=== PATIENT | female | born 1955 | race Caucasian/White ===

== ENCOUNTER 2017-06-17 03:20 | Emergency (ER) | payer BC, OTHER ==
[~2017-06-17] VITALS: Ht 170.2 cm; Wt 68.2 kg
[2017-06-17] MEDS ORDERED: IOHEXOL 350 MG/ML 10 ML VIAL (for RAD DIAG) IVCONTRAST ONE (03:21)
[2017-06-17 03:28] VITALS: BP 94/63; PULSE 66; RESP 14; TEMP 98.6; O2SAT 99
[2017-06-17] MEDS ORDERED: SODIUM CHLOR 0.9% 1000 ML INJ 1,000 ML IV ONE ×2 (03:34→05:00)
--- NOTE | 2017-06-17 03:37 | PD ---
HPI Chief Complaint: Syncope/Near-Syncope Time Seen by Provider: 03:33 Travel History International Travel<30 days: No Contact w/Intl Traveler<30days: No Traveled to known affect area: No History of Present Illness HPI 62 year-old female presents to the emergency department by EMS transport from home after a syncopal episode and subsequent right forehead laceration. According to the patient she went to bed as usual last evening around 9 PM after taking her lorazepam at 8 PM when she does every night. Patient states just prior to arrival to the emergency department she was awakened by severe cramping of the abdomen. Patient states that as she was up to go to the bathroom and while having a diarrheal stool the cramping increased and she started to feel lightheaded and as she started to stand up she passed out and fell. Patient states when she came to she realized that she had hit her face and sustained a laceration to her forehead. Patient was able to get up on her own and call a friend who is a nurse and was encouraged to come to the hospital. Patient states since the event she has been ambulatory at home. Patient complains of headache. Patient denies any visual disturbance. Patient denies any facial pain except with laceration. Patient denies neck pain. Patient has had no chest pain, no palpitations, no sweats, no nausea or vomiting , or shortness of breath. Patient denies any rib pain. Patient denies any pleuritic pain. No report of recent long distance travel protracted bedrest or recent surgical procedure. Patient denies abdominal pain at this time. Patient denies any recent dietary indiscretion, well water ingestion, or foreign travel. No report of mucoid or bloody stool. No recent antibiotic use. Patient denies history of colitis, diverticulitis, or inflammatory bowel disease. Patient has had GI upset in the past. Patient underwent upper endoscopy for esophageal dilatation and outpatient hemorrhoidectomy. Patient denies any dysuria, frequency, or urgency; no extremity pain or injury. FOR[facility]LY [facility] Past Medical History Narrative Medical tetanus 2016 anxiety appendectomy; tobacco use no alcohol use; nursing notes reviewed Cancer: No Cardiovascular Problems: No Diminished Hearing: No Endocrine: No Genitourinary: No Immune Disorder: No Musculoskeletal: No Neurologic: No Psychiatric: No Reproductive: No Respiratory: No ?: Not Menopausal: Yes Past Surgical History Abdominal Surgery: No Appendectomy: Yes Cardiac Surgery: No Ear Surgery: No Endocrine Surgery: No Eye Surgery: No Genitourinary Surgery: No Gynecologic Surgery: No Oral Surgery: No Thoracic Surgery: No Other Surgery: Yes (Minor plastic surgery) Social History Alcohol Use: Yes (2 glasses of wine a day) Tobacco Use: Yes (1/2 pack a day) Substance Use: No Allergies-Medications (Allergen,Severity, Reaction): Coded Allergies: nitrofurantoin (Verified Allergy, Intermediate, Rash, 06/17/17) Sulfa (Sulfonamide Antibiotics) (Verified Allergy, Unknown, 06/17/17) Per patient Reported Meds & Prescriptions Reported Meds & Active Scripts Active Reported Restoril (Temazepam) 30 Mg Cap 30 Mg PO HS PRN Review of Systems Except as stated in HPI: all other systems reviewed are Neg General / Constitutional: No: Fever, Chills Eyes: No: Visual changes HENT: Positive: Headaches, Lightheadedness, No: Neck Stiffness, Neck Pain Cardiovascular: Positive: Syncope, No: Chest Pain or Discomfort, Palpitations, Diaphoresis, Dyspnea on exertion, Claudication Respiratory: No: Shortness of Breath, Pleuritic Pain Gastrointestinal: Positive: Diarrhea, Abdominal Pain, No: Nausea, Vomiting, Hematemesis, Hematochezia Genitourinary: No: Dysuria, Flank Pain Musculoskeletal: No: Myalgias, Arthralgias Skin: Positive Other, No Rash Neurologic: Positive: Weakness (forehead laceration), Dizziness, Syncope, No: Focal Abnormalities, Coordination Problem Psychiatric: No: Anxiety Endocrine: No: Heat Intolerance Hematologic/Lymphatic: No: Easy Bruising Physical Exam Narrative GENERAL: Well-developed well-nourished female in no acute distress no respiratory distress; GCS 15 SKIN: Warm and dry. HEAD: Atraumatic. Normocephalic. Except for right forehead just overlying the right eyebrow is a deep 2 cm linear laceration EYES: Pupils equal and round. No scleral icterus. No injection or drainage. No periorbital rim bony abnormality or crepitus or step-off. ENT: No nasal bleeding or discharge. Mucous membranes pink and moist. Airway is patent. No hemotympanum. NECK: Trachea midline. No JVD. No midline tenderness to direct palpation along the cervical spine no bony step-off nontender. CARDIOVASCULAR: Regular rate and rhythm. RESPIRATORY: No accessory muscle use. Clear to auscultation. Breath sounds equal bilaterally. GASTROINTESTINAL: Abdomen soft, non-tender, nondistended. Hepatic and splenic margins not palpable. MUSCULOSKELETAL: Extremities without clubbing, cyanosis, or edema. No obvious deformities. NEUROLOGICAL: Awake and alert. No obvious cranial nerve deficits. Motor grossly within normal limits. Five out of 5 muscle strength in the arms and legs. No pronator drift. No limb ataxia. Sensory exam intact. Normal speech. PSYCHIATRIC: Appropriate mood and affect; insight and judgment normal. Data Data Last Documented VS Vital Signs Date Time Temp Pulse Resp B/P (MAP) Pulse Ox O2 Delivery O2 Flow Rate FiO2 06/17/17 06:02 63 96/62 (73) 55 103/76 (85) 74 107/78 (88) 06/17/17 05:05 15 99 Room Air 06/17/17 03:28 98.6 Orders Orders Electrocardiogram (06/17/17 03:34) Complete Blood Count With Diff (06/17/17 03:34) Comprehensive Metabolic Panel (06/17/17 03:34) Magnesium (Mg) (06/17/17 03:34) Ckmb (Isoenzyme) Profile (06/17/17 03:34) Troponin I (06/17/17 03:34) Act Partial Throm Time (Ptt) (06/17/17 03:34) Prothrombin Time / Inr (Pt) (06/17/17 03:34) Urinalysis - C+S If Indicated (06/17/17 03:34) Chest, Single Ap (06/17/17 03:34) Ct Brain W/O Iv Contrast(Rout) (06/17/17 03:34) Ct Cerv Spine W/O Contrast (06/17/17 03:34) Blood Glucose (06/17/17 03:34) Ecg Monitoring (06/17/17 03:34) Iv Access Insert/Monitor (06/17/17 03:34) Oximetry (06/17/17 03:34) Sodium Chloride 0.9% Flush (Ns Flush) (06/17/17 03:45) Sodium Chlor 0.9% 1000 Ml Inj (Ns 1000 M (06/17/17 03:34) Ct Abd/Pel W Iv Contrast(Rout) (06/17/17 ) Lidocaine Pf 1% Inj (Xylocaine-Mpf 1% In (06/17/17 03:45) Lidocaine 2% Jelly (Xylocaine 2% Jelly) (06/17/17 04:00) Sodium Chlor 0.9% 1000 Ml Inj (Ns 1000 M (06/17/17 05:00) Iohexol 350 Inj (Omnipaque 350 Inj) (06/17/17 03:21) Orthostatic Vital Signs (06/17/17 05:44) Labs Laboratory Tests Test 06/17/17 03:50 06/17/17 06:00 White Blood Count 7.2 TH/MM3 Red Blood Count 4.20 MIL/MM3 Hemoglobin 12.8 GM/DL Hematocrit 37.7 % Mean Corpuscular Volume 89.8 FL Mean Corpuscular Hemoglobin 30.5 PG Mean Corpuscular Hemoglobin Concent 34.0 % Red Cell Distribution Width 12.7 % Platelet Count 252 TH/MM3 Mean Platelet Volume 8.0 FL Neutrophils (%) (Auto) 54.9 % Lymphocytes (%) (Auto) 32.3 % Monocytes (%) (Auto) 6.1 % Eosinophils (%) (Auto) 5.2 % Basophils (%) (Auto) 1.5 % Neutrophils # (Auto) 4.0 TH/MM3 Lymphocytes # (Auto) 2.3 TH/MM3 Monocytes # (Auto) 0.4 TH/MM3 Eosinophils # (Auto) 0.4 TH/MM3 Basophils # (Auto) 0.1 TH/MM3 CBC Comment DIFF FINAL Differential Comment Prothrombin Time 9.8 SEC Prothromb Time International Ratio 0.9 RATIO Activated Partial Thromboplast Time 18.2 SEC Blood Urea Nitrogen 25 MG/DL Creatinine 0.79 MG/DL Random Glucose 112 MG/DL Total Protein 6.8 GM/DL Albumin 3.4 GM/DL Calcium Level 8.3 MG/DL Magnesium Level 2.3 MG/DL Alkaline Phosphatase 69 U/L Aspartate Amino Transf (AST/SGOT) 21 U/L Alanine Aminotransferase (ALT/SGPT) 22 U/L Total Bilirubin 0.2 MG/DL Sodium Level 139 MEQ/L Potassium Level 4.1 MEQ/L Chloride Level 105 MEQ/L Carbon Dioxide Level 28.7 MEQ/L Anion Gap 5 MEQ/L Estimat Glomerular Filtration Rate 74 ML/MIN Total Creatine Kinase 72 U/L Troponin I LESS THAN 0.02 NG/ML Urine Color YELLOW Urine Turbidity CLEAR Urine pH 5.0 Urine Specific [place] GREATER THAN 1.035 Urine Protein NEG mg/dL Urine Glucose (UA) NEG mg/dL Urine Ketones TRACE mg/dL Urine Occult Blood NEG Urine Nitrite NEG Urine Bilirubin NEG Urine Leukocyte Esterase NEG Urine RBC 0-2 /hpf Urine WBC 0-2 /hpf Urine Squamous Epithelial Cells 6-8 /hpf Urine Bacteria NONE /hpf Microscopic Urinalysis Comment CULT NOT INDICATED MDM Medical Decision Making Medical Screen Exam Complete: Yes Emergency Medical Condition: Yes Medical Record Reviewed: Yes Interpretation(s) EKG normal sinus rhythm rate [address] elevation or injury pattern age- indeterminate septal infarct QS V1 V2 CT brain w/oL CONCLUSION: 1. No acute intracranial abnormalities. Laceration right frontal scalp. Van Moran MD on June 17, 2017 at 5:15 Board Certified Radiologist. This report was verified electronically. CT cervical spine: CONCLUSION: 1. No acute findings. Degenerative disc disease and facet arthropathy. No canal stenosis. Van Moran MD on June 17, 2017 at 5:18 Board Certified Radiologist. This report was verified electronically. CT abd/pel: CONCLUSION: 1. Negative for acute traumatic injury within the abdomen or pelvis. Small enhancing lesion posterior aspect right lobe liver, likely benign. Colonic diverticula without diverticulitis. Van Moran MD on June 17, 2017 at 5:21 Board Certified Radiologist. This report was verified electronically. CBC & BMP Diagram 06/17/17 03:50 Total Protein 6.8, Albumin 3.4, Calcium Level 8.3 L, Magnesium Level 2.3, Alkaline Phosphatase 69, Aspartate Amino Transf (AST/SGOT) 21, Alanine Aminotransferase (ALT/SGPT) 22, Total Bilirubin 0.2 Vital Signs Date Time Temp Pulse Resp B/P (MAP) Pulse Ox O2 Delivery O2 Flow Rate FiO2 06/17/17 05:05 65 15 96/62 (73) 99 Room Air 06/17/17 04:45 68 14 89/68 (75) 98 Room Air 06/17/17 03:38 97 06/17/17 03:28 98.6 66 14 94/63 (73) 99 Differential Diagnosis Syncope near-syncope vasovagal syncope gastroenteritis arrhythmia IA ICH CHI laceration skull fracture electrolyte disturbance UTI sepsis anemia Narrative Course Patient placed on cardiac cath lab radiology technologist IV access obtained specimens collected and sent for resulting EKG normal sinus rhythm rate 60 age-indeterminate QS septally no acute ST elevation or injury pattern change noted patient administered 1 L normal saline tetanus status is current as of June 2016 laceration repair performed imaging studies ordered @ 4:[address] Patient is return from CT resting comfortably voicing no complaint Patient up out of bed to bathroom to collect urine specimen asymptomatic no dizziness no lightheadedness no balance disturbance no nausea no vomiting no chest pain no shortness of breath Blood pressure has increased to 107/78. Urinalysis shows specific gravity greater than 1.035 suggesting patient volume depleted Discussed with patient observation admission due to syncopal episode with head injury and crampy abdominal pain of unclear etiology; patient unwilling to be admitted but does have access to a responsible adult to follow her over the next 24 hours while she is following head injury precautions and to return her immediately to the emergency department for any concerns or change in condition Procedures Procedure Narrative LACERATION LOCATION: Right forehead LENGTH: 3 cm NUMBER OF STITCHES/JOE: 15 REPAIR: The area of the laceration was prepped with Betadine and sterilely draped. The laceration was infiltrated with 1% lidocaine plain. The wound was copiously irrigated and explored without evidence of foreign body, tendon injury or neurovascular injury. The wound was closed using #3 6-0 Vicryl, #12 6 -0 nylon. This was a double layer repair. A sterile dressing was applied. The patient was advised to keep the dressing clean and dry. Patient tolerated the procedure well. Tetanus status current June 2016. Diagnosis Primary Impression: Syncope Qualified Codes: R55 - Syncope and collapse Additional Impressions: Closed head injury Qualified Codes: S09.90XA - Unspecified injury of head, initial encounter Forehead laceration Qualified Codes: S01.81XA - Laceration without foreign body of other part of head, initial encounter Hypotension Qualified Codes: I95.9 - Hypotension, unspecified Referrals: Primary Care Physician 1 day Patient Instructions: General Instructions Additional Instructions: Follow head injury precautions 24 hours No work times one day increase fluid hydration Take acetaminophen/Tylenol as often as every 4 hours as needed for fever 100.4 F or greater or for minor pain Keep wound site clean and dry apply topical antibiotic frequently; avoid sunburn to laceration area Wound check at 2 days suture removal at 5-7 days May apply ice intermittently to areas soft tissue swelling Return to the emergency department for fever pain vomiting or any concerns Med/Other Pt SpecificInfo: Prescription(s) given Scripts Ondansetron Odt (Zofran Odt) 4 Mg Tab 4 MG SL Q6HR Y for Nausea/Vomiting, #10 TAB 0 Refills Prov: Nidia Zuñiga MD 06/17/17 Disposition: 01 DISCHARGE HOME Condition: Serious Nidia Zuñiga MD Jun 17, 2017 03:37
[2017-06-17 03:38] VITALS: O2SAT 97
[2017-06-17] MEDS ORDERED: LIDOCAINE HCL 1% PF 30 ML VIAL INFIL ONE (03:45)
[2017-06-17] MEDS ORDERED: SODIUM CHLORIDE 0.9% FLUSH 10 ML FLUSH IVF PRN (03:45)
[2017-06-17] MEDS ORDERED: LIDOCAINE HCL 2% JELLY 5 ML SYRINGE TOPICAL ONE (04:00)
[2017-06-17 04:02] LABS: BASOPHIL # 0.1 TH/MM3 (0-0.2); BASOPHIL % 1.5 % (0.0-2.0); EOSINOPHIL # 0.4 TH/MM3 (0-0.4); EOSINOPHIL % 5.2 % (0.0-4.0); HEMATOCRIT 37.7 % (35.0-46.0); HEMO FLAGS DIFF FINAL; LYMPH % 32.3 % (9.0-44.0); LYMPHOCYTE # 2.3 TH/MM3 (1.0-4.8); MEAN CELL VOLUME 89.8 FL (80.0-100.0); MEAN CORPUSCULAR HEMOGLOBIN 30.5 PG (27.0-34.0); MONO % 6.1 % (0.0-8.0); NEUT % 54.9 % (16.0-70.0); PLATELET COUNT 252 TH/MM3 (150-450); RED CELL DISTRIBUTION WIDTH 12.7 % (11.6-17.2); WHITE BLOOD COUNT 7.2 TH/MM3 (4.0-11.0)
--- NOTE | 2017-06-17 04:05 | RADRPT ---
EXAM DATE/TIME: 06/17/2017 03:45 [facility] COMPARISON: No previous studies available for comparison. INDICATIONS : Fall. MEDICAL HISTORY : Smoker. SURGICAL HISTORY : Breast augmentation. ENCOUNTER: Initial ACUITY: 1 day PAIN SCORE: 0/10 LOCATION: Bilateral chest FINDINGS: A single view of the chest demonstrates the lungs to be symmetrically aerated without evidence of mas s, infiltrate or effusion. The cardiomediastinal contours are unremarkable. Osseous structures are intact. CONCLUSION: No acute disease. Van Moran MD on June 17, 2017 at 4:03 Board Certified Radiologist. This report was verified electronically.
[2017-06-17 04:11] LABS: CHLORIDE 105 MEQ/L (98-107); POTASSIUM 4.1 MEQ/L (3.5-5.1); SODIUM (NA) 139 MEQ/L (136-145)
[2017-06-17 04:15] LABS: ANION GAP 5 MEQ/L (5-15); BICARBONATE 28.7 MEQ/L (21.0-32.0); BLOOD UREA NITROGEN 25 MG/DL (7-18); MAGNESIUM 2.3 MG/DL (1.5-2.5)
[2017-06-17 04:18] LABS: ALT (GPT) 22 U/L (10-53); AST (GOT) 21 U/L (15-37); GLOMERULAR FILTRATION RATE 74 ML/MIN (>89)
[2017-06-17 04:20] LABS: TOTAL BILIRUBIN ADULT 0.2 MG/DL (0.2-1.0)
[2017-06-17 04:21] LABS: ALKALINE PHOSPHATASE 69 U/L (45-117); APTT (PATIENT) 18.2 SEC (24.3-30.1); INTERNATIONAL NORMALIZED RATIO 0.9 RATIO; PROTHROMBIN TIME - PATIENT 9.8 SEC (9.8-11.6)
[2017-06-17 04:25] LABS: CREATINE KINASE 72 U/L (26-192)
[2017-06-17 04:45] VITALS: BP 89/68; PULSE 68; RESP 14; O2SAT 98
[2017-06-17] MEDS ORDERED: REST30CA PO (04:59)
[2017-06-17 05:05] VITALS: BP 96/62; PULSE 65; RESP 15; O2SAT 99
--- NOTE | 2017-06-17 05:18 | RADRPT ---
EXAM DATE/TIME: 06/17/2017 04:45 [facility] COMPARISON: No previous studies available for comparison. INDICATIONS : TIA, syncope today. Positive LOC. Laceration to forehead. Headache. RADIATION DOSE: 62.80 CTDIvol (mGy) MEDICAL HISTORY : None SURGICAL HISTORY : None. ENCOUNTER: Initial ACUITY: 1 day PAIN SCALE: 6/10 LOCATION: Right cranial forehead TECHNIQUE: Multiple contiguous axial images were obtained of the head. Using automated exposure control and adj ustment of the mA and/or kV according to patient size, radiation dose was kept as low as reasonably a chievable to obtain optimal diagnostic quality images. DICOM format image data is available electro nically for review and comparison. FINDINGS: CEREBRUM: The ventricles are normal for age. No evidence of midline shift, mass lesion, hemorrhage or acute in farction. No extra-axial fluid collections are seen. POSTERIOR FOSSA: The cerebellum and brainstem are intact. The 4th ventricle is midline. The cerebellopontine angle i s unremarkable. EXTRACRANIAL: The visualized portion of the orbits is intact. SKULL: The calvaria is intact. No evidence of skull fracture. CONCLUSION: 1. No acute intracranial abnormalities. Laceration right frontal scalp. Van Moran MD on June 17, 2017 at 5:15 Board Certified Radiologist. This report was verified electronically.
--- NOTE | 2017-06-17 05:22 | RADRPT ---
EXAM DATE/TIME: 06/17/2017 04:45 [facility] COMPARISON: No previous studies available for comparison. INDICATIONS : Status post fall tonight RADIATION DOSE: 25.61 CTDIvol (mGy) MEDICAL HISTORY : None SURGICAL HISTORY : None. ENCOUNTER: Initial ACUITY: 1 day PAIN SCALE: 0/10 LOCATION: neck TECHNIQUE: Volumetric scanning of the cervical spine was performed. Multiplanar reconstructions in the sagittal, coronal and oblique axial planes were performed. Using automated exposure control and adjustment o f the mA and/or kV according to patient size, radiation dose was kept as low as reasonably achievable to obtain optimal diagnostic quality images. DICOM format image data is available electronically f or review and comparison. FINDINGS: There is no acute fracture or spondylolisthesis. No prevertebral soft tissue swelling. Moderate facet arthropathy. No significant bony canal stenosis. CONCLUSION: 1. No acute findings. Degenerative disc disease and facet arthropathy. No canal stenosis. Van Moran MD on June 17, 2017 at 5:18 Board Certified Radiologist. This report was verified electronically.
--- NOTE | 2017-06-17 05:27 | RADRPT ---
EXAM DATE/TIME: 06/17/2017 04:45 [facility] COMPARISON: No previous studies available for comparison. INDICATIONS : Abdominal cramping and pain. IV CONTRAST: 96 cc Omnipaque 350 (iohexol) IV ORAL CONTRAST: No oral contrast ingested. RADIATION DOSE: 8.84 CTDIvol (mGy) MEDICAL HISTORY : None SURGICAL HISTORY : None. ENCOUNTER: Initial ACUITY: 1 day PAIN SCALE: 4/10 LOCATION: abdomen TECHNIQUE: Volumetric scanning of the abdomen and pelvis was performed. Using automated exposure control and ad justment of the mA and/or kV according to patient size, radiation dose was kept as low as reasonably achievable to obtain optimal diagnostic quality images. DICOM format image data is available electro nically for review and comparison. FINDINGS: Lung bases are clear. No effusion. Mild fatty liver. Small enhancing lesion posterior right lobe liver measures 1.3 cm, nonspecific but probably a small atypical hemangioma or vascular lesion. Spleen, adrenals, kidneys and pancreas unrem arkable. No gallstones or biliary ductal dilatation. There is no bowel obstruction. No free air or free fluid. Colonic diverticula noted without diverticu litis. No acute bony abnormalities. CONCLUSION: 1. Negative for acute traumatic injury within the abdomen or pelvis. Small enhancing lesion posterior aspect right lobe liver, likely benign. Colonic diverticula without diverticulitis. Van Moran MD on June 17, 2017 at 5:21 Board Certified Radiologist. This report was verified electronically.
[2017-06-17 06:02] VITALS: BP_SYST 103; BP_SYST 107; BP_SYST 96; BP_DIAS 62; BP_DIAS 76; BP_DIAS 78
[2017-06-17 06:13] LABS: BLOOD, URINE NEG (NEG); GLUCOSE,URINE NEG (NEG); KETONE, URINE TRACE mg/dL (NEG); NITRITE,URINE NEG (NEG)
[2017-06-17 06:15] LABS: URINE COLOR YELLOW (YELLW/STRAW)
[2017-06-17 06:17] LABS: COMMENT (UR) CULT NOT INDICATED; CULTURE IF INDICATED CULT NOT INDICATED; RBC, URINE 0-2 /hpf (0-3); WBC, URINE 0-2 /hpf (0-5)
[2017-06-17] MEDS ORDERED: ZOFR4TAB3 SL (06:21)
[2017-06-17 06:23] VITALS: BP 107/74; TEMP 98.5
--- NOTE | 2017-06-17 07:09 | EKG ---
Date Performed: 06/17/2017 Time Performed: 03:37:46 PTAGE: 62 years EKG: Sinus rhythm SEPTAL MYOCARDIAL INFARCTION ABNORMAL ECG NO PREVIOUS TRACING DOCTOR: Andre Van Interpretating Date/Time 06/17/2017 07:07:24
== END 2017-06-17 06:49 | disposition home or self-care (01) ==
LOC: PHED 03:20
DX: R55 Syncope and collapse (principal); S01.81XA Laceration without foreign body of other part of head, initial encounter; I95.9 Hypotension, unspecified; F17.210 Nicotine dependence, cigarettes, uncomplicated; W18.39XA Other fall on same level, initial encounter; Y92.002 Bathroom of unspecified non-institutional (private) residence as the place of occurrence of the external cause
CPT/HCPCS: 12052; 70450; 71010; 72125; 74177; 80053; 81001; 82550; 83735; 84484; 85025; 85610; 85730; 93005; 96360; 96361; 99285; J7030; Q9967